=== PATIENT | female | born 1990 | race African-American/Black ===

== ENCOUNTER 2024-01-18 13:23 | Inpatient (IN) | payer OTHER, SELFPAY ==
--- NOTE | ~2024-01-18 | CT_ITS ---
EXAMINATION: CT abdomen pelvis w con DATE: 01/18/2024 16:56 INDICATION: Right buttock abscess. TECHNIQUE: Computed tomography (CT) of the abdomen and pelvis was performed with 100 mL Omnipaque 350 intravenous contrast. Automated exposure control and iterative reconstruction technique were employe d. The dose-length product was 489.70 mGy-cm. COMPARISON: None. FINDINGS: The visualized portions of the lung bases are clear without pneumonia or pleural effusion. The heart size is normal. No pericardial effusion. The liver, gallbladder, spleen, pancreas, adrenal glands, and kidneys are normal. There are no dilated loops of bowel. The appendix is normal. There is no free intraperitoneal fluid. There is a mildly enlarged right external iliac lymph node. There is fat stranding in the right perineum and right buttock. There is mild lumbar spondylosis. Severely dec reased disc height at T10-T11 may be an abnormality of segmentation. IMPRESSION: 1. Fat stranding in the right perineum and right buttock, consistent with inflammation. No well-defin ed drainable abscess. 2. Mildly enlarged right external iliac lymph node, likely reactive. Reviewed, dictated and finalized at location A. IMPRESSION: 1. Fat stranding in the right perineum and right buttock, consistent with infla mmation. No well-defined drainable abscess. 2. Mildly enlarged right external iliac lymph node, likely reactive.
[2024-01-18 14:10] VITALS: BP 143/88; PULSE 110; RESP 18; TEMP 37.6; O2SAT 100
--- NOTE | 2024-01-18 14:22 | ED.RECABL ---
HPI - Recheck/Abnormal Lab/Rx General Chief Complaint: Recheck/Abnormal Lab/Rx <ALECIA Falk Last Filed: 01/18/24 14:31> Stated Complaint: high blood sugar <ALECIA Falk Last Filed: 01/18/24 14:31> Time Seen by Provider: 01/18/24 14:22 <ALECIA Falk Last Filed: 01/18/24 14:31> Focused HPI: Patient is a 33 y/o female who presents to the ED with c/o elevated BG. Patient reports she has been dealing with a persistent yeast infection/UTI sx's since July. Was seen at [facility] at that time and told her BG was elevated, but was not formally diagnosed with DM. Hx of gestational DM in 2019. Over the last few months, patient c/o polyuria, polydipsia, frothy urine, intermittent paraesthesias in her extremities. States she checked her BG at work last night and it was elevated in the 500s. Saw her PCP today, bedside BG was mid 500's. Sent here for further evaluation. Patient does also admit to approx 60 lb unintentional weight loss since July. She has FHx of DM. GENERAL: Well-appearing, well-nourished, and in no acute distress. HEAD: Normocephalic, atraumatic. ENT: MMs dry. CHEST: Clear to auscultation. ?No respiratory distress. HEART: Regular rate and rhythm.? NEURO: ?Alert and oriented x3. Patient screened in triage and initial orders placed.? ?Additional care and disposition to be based upon?diagnostic testing and treatment. <ALECIA Falk Last Filed: 01/18/24 14:31> Source: patient <ALECIA Falk Last Filed: 01/18/24 14:31> Mode of arrival: ambulatory <ALECIA Falk Last Filed: 01/18/24 14:31> Limitations: no limitations <ALECIA Falk Last Filed: 01/18/24 14:31> History of Present Illness HPI narrative: 33-year-old female presented emergency department for evaluation of persistently elevated blood sugars. Patient states that she suspects she has had elevated blood sugar since July but has not had follow-up with her primary care physician today patient states she has had longstanding issues with polyuria but did see a and has had a persistent yeast infection. Patient also reports over the course of the last week she has had a draining abscess on her right buttock. Patient attempted to have follow-up with her primary care physician today but due to her blood sugars being so elevated she was referred to the emergency department. Patient does have a prior history of gestational diabetes in 2019 <Jason Mckeon MD - Last Filed: 01/18/24 22:24> Related Data Allergies/Adverse Reactions: Allergies Allergy/AdvReac Type Severity Reaction Status Date / Time No Known Allergies Allergy Verified 01/18/24 15:14 <Ashlie Woodruff PA-C - Last Filed: 01/18/24 14:31> Review of Systems Review of Systems: All systems reviewed & are unremarkable except as noted in HPI and below <Jason Mckeon MD - Last Filed: 01/18/24 22:24> [facility] Past Medical History Medical History: Medical History (Updated 01/18/24 @ 22:11 by Connie Andino PA-C) Gestational diabetes <Ashlie Woodruff PA-C - Last Filed: 01/18/24 14:31> Surgical History Surgical History: Surgical History (Updated 01/18/24 @ 22:11 by Connie Andino PA-C) No history of previous surgery <Ashlie Woodruff PA-C - Last Filed: 01/18/24 14:31> Family History Family History: Family History Father Hypertension Grandparent Diabetes mellitus <Ashlie Woodruff PA-C - Last Filed: 01/18/24 14:31> Social History Social History: Social History (Updated 01/18/24 @ 22:12 by Connie Andino PA-C) Social History: Surrogate medical decision maker: Dorys Ibarra, mother. Code status: Full code. Smoking packs per day: 0.25 Smoking cigarettes per day: 5.0 Years smoked: 14 Smoking pack-years:
[2024-01-18 14:27] LABS: Glucose Point of Care 329 mg/dl (65-105)
[2024-01-18 14:44] LABS: Basophils Absolute Auto 0.1 K/mm3 (0.0-0.1); Basophils Percent Auto 0.4 % (0.2-1.2); Eosinophils Absolute Auto 0.1 K/mm3 (0-0.3); Eosinophils Percent Auto 0.4 % (0-4.4); Hematocrit 41.1 % (37.0-47.0); Immature Granulocyte Absolute 0.07 K/mm3 (0.00-0.031); Immature Granulocyte Percent A 0.5 % (0-0.5); Lymphocytes Absolute Auto 1.17 K/mm3 (0.9-3.2); Lymphocytes Percent Auto 8.4 % (18.3-44.2); Mean Corpuscular HGB Conc 34.1 g/dl (32-36); Mean Corpuscular Hemoglobin 29.9 pg (26-34); Mean Corpuscular Volume 87.8 fl (80-100); Mean Platelet Volume 11.5 fl (7.4-10.4); Monocytes Absolute Auto 0.9 K/mm3 (0.1-0.6); Monocytes Percent Auto 6.4 % (2.6-8.5); Neutrophils Absolute Auto 11.6 K/mm3 (1.3-6.7); Neutrophils Percent Auto 83.9 % (45.5-73.1); Platelet Count Result 262 k/mm3 (150-375); Red Blood Count 4.68 M/mm3 (4.2-5.4); Red Cell Distribution Width 13.6 % (11.5-14.5); White Blood Count 13.9 K/mm3 (4.5-10.0)
[2024-01-18 14:55] LABS: Alanine Aminotransferase 14 U/L (6-35); Albumin Level 4.2 g/dL (3.5-5.1); Alkaline Phosphatase 91 U/L (38-126); Anion Gap 9 mmol/L (4-12); Aspartate Amino Transferase 17 U/L (14-36); Bilirubin,Total 0.6 mg/dL (0.2-1.3); Blood Urea Nitrogen 7 mg/dL (7-17); Calcium 10.3 mg/dL (8.4-10.2); Carbon Dioxide 23 mmol/L (22-30); Chloride 102 mmol/L (98-107); Estimated CRCL calculation 134 ml/min; Estimated Glomerular Filt Rate > 60; Glucose 338 mg/dL (65-110); Magnesium 1.9 mg/dL (1.6-2.3); Phosphorus 3.1 mg/dL (2.5-4.5); Sodium 134 mmol/L (137-145)
[2024-01-18 14:56] LABS: Lactic Acid Reflex 1.6 mmol/L (0.7-2.0)
[2024-01-18 14:59] LABS: Beta-Hydroxybutyrate/Acetoacetate 1.32 mmol/L (0.02-0.27)
[2024-01-18 15:06] LABS: Hemoglobin A1C 13.6 % (<5.7)
[2024-01-18 15:12] LABS: Alveolar/Arterial O2 Gradient 40.1 mmHg; Base Excess ABG -1.5 mEq/l (+/-2.0); Carboxyhemoglobin 1.7 % THb (0-2.0); Fractional Inspired Oxygen 21 %; HCO3 ABG 20.7 mEq/l (22.0-26.0); Methemoglobin ABG 0.1 %THb (0-1.5); Oxygen Content ABG 18.3 %vol (16.0-22.0); Oxygen Saturation ABG 96.2 % (95.0-100.0); Oxyhemoglobin 93.3 % THb (90.0-100.0); PCO2 ABG 28.6 mmHg (35.0-45.0); PO2 ABG 75.4 mmHg (80.0-100.0); PO2 FiO2 Ratio Arterial Blood 3.59 %; Reduced Hemoglobin 4.9 %THb (0-5.0); Total Hemoglobin 13.9 g/dL (12.0-18.0); pH ABG 7.478 (7.350-7.450)
[2024-01-18 15:14] VITALS: BP 115/82; PULSE 95; RESP 17; TEMP 38.4; O2SAT 100
[2024-01-18 15:15] LABS: Device ROOM AIR; Site Drawn LEFT RADIAL
[2024-01-18] MEDS: SODIUM CHLORIDE 0.9% IV 1,000 ML 999 ML IV CONT ×2 (15:21→15:58)
[2024-01-18 15:55] VITALS: BMI 30.4
[2024-01-18] MEDS: ACETAMINOPHEN 500 MG TABLET 1000 MG PO ×2 (15:57→23:11)
--- NOTE | 2024-01-18 16:00 | PM.IMHP ---
H&P: HPI History of Present Illness Date/Time: 01/18/24 16:45 Chief Complaint: High blood sugar. Narrative: This is a pleasant 33-year-old female with history of gestational diabetes in 2019 who presented to the emergency department the direction of her primary care provider for evaluation after she was found to have a blood sugar over 500. The patient provides the following history. She has been dealing with recurrent yeast in urinary tract infections since last July. She was seen at [facility] for her symptoms and was told that her glucose was elevated however she was never formally diagnosed with diabetes. Since that time she has lost 60 lb unintentionally and endorses polyuria, polydipsia, frothy urine, intermittent paresthesias in her fingers and feet, and a 60 lb weight loss. Last night work she decided to check her blood glucose and noted that it was greater than 500. She also reports ongoing an intermittent issues with boils on the perineum and buttock and over the last several days she has developed a painful boil on the right buttock which has been draining serosanguineous fluid. Last couple of days she has been running fevers and reports generalized malaise. She denies sinus congestion, sore throat, cough, nausea, vomiting, and diarrhea. In the ED: Temperature was 101.1? and she was tachycardic in the low 100s. Labs were significant for a WBC count of 13.9, sodium 134, glucose 338, lactic acid 1.6, glucose 338, beta hydroxybutyrate 1.32. She was given 2 L normal saline bolus and a dose of Zosyn and she is being admitted in this setting for further treatment and evaluation. Review of Systems Review of Systems: 12 systems were reviewed and are negative except for as per HPI. [facility] Past Medical History Medical History (Updated 01/18/24 @ 22:11 by Connie Andino PA-C) Gestational diabetes Surgical History Surgical History (Updated 01/18/24 @ 22:11 by Connie Andino PA-C) No history of previous surgery Family History Family History Father Hypertension Grandparent Diabetes mellitus Social History Social History (Updated 01/18/24 @ 22:12 by Connie Andino PA-C) Social History: Surrogate medical decision maker: Dorys Ibarra, mother. Code status: Full code. Smoking packs per day: 0.25 Smoking cigarettes per day: 5.0 Years smoked: 14 Smoking pack-years: 3.50 Smoking status: Current every day smoker Tobacco type: cigarettes Second hand tobacco smoke exposure: Yes Alcohol intake: never Substance use: current Substance use type: marijuana Do You Feel Safe in your Home?: Yes Lack of Transportation: No Lack of Food: Never True Current Housing: I Have Housing Concerned About Future Housing: No Difficulty Paying Gas/Electric Bills: No Difficulty Paying for Meds: No Currently Unemployed: No Education: High School Diploma/GED Difficulty w/ Childcare or Family Care: No Additional living arrangements comments: Lives with mother in 5-year-old son. Additional occupation/education comments: [employer]. Spiritual care concerns: No Meds Home Medications and Allergies Allergies Allergy/AdvReac Type Severity Reaction Status Date / Time No Known Allergies Allergy Verified 01/18/24 15:14 Vital Signs Vital Signs - 24 hr 01/18/24 14:10 01/18/24 15:14 Temperature 99.6 F 101.1 F H Pulse Rate 110 H 95 Respiratory Rate 18 17 Blood Pressure 143/88 H 115/82 Pulse Oximetry 100 100 Oxygen Delivery Room Air Room Air Exam Narrative: General: Well-developed, nontoxic-appearing female in the semi-Rivera position in bed. Weight: 80.2 kg. BMI: 30.3. HEENT: PERRL, EOMI. Sclera anicteric. Oral mucosa moist. Neck: Supple. Respiratory: Lungs are clear to auscultation bilaterally. Cardiovascular: Regular rate and rhythm with S1-S2. Gastrointestinal: Abdomen is soft, nontender, an
[2024-01-18 16:27] VITALS: TEMP 37.5
[2024-01-18 16:38] VITALS: BP 122/85; PULSE 98; RESP 15; TEMP 37.5; O2SAT 100
[2024-01-18 16:46] LABS: Appearance Urine Clear (Clear); Bilirubin Urine Negative (Negative); Blood Urine Negative (Negative); Color Urine Yellow (Yellow); Glucose Urine UA 3+ mg/dL (Negative); Ketones Urine 4+ mg/dL (Negative); Leukocyte Esterase Ur Negative LEU/UL (Negative); Nitrate Urine Negative (Negative); Protein Urine Negative (Negative); pH Urine 5.5 (5.0-9.0)
[2024-01-18 16:55] LABS: Add Urine Microscopic? NO
[2024-01-18 17:54] VITALS: BP 123/82; PULSE 96; RESP 16; TEMP 36.8; O2SAT 100
--- NOTE | 2024-01-18 18:00 | ADMGEN ---
This patient, Micheal Ibarra, was admitted to 2 Medical Room 260-. Patient/family oriented to hospital policies and general routines including ID bracelet, bed and alarms, visiting hours, pain management, procedures, bathroom and other care routines, personal items, smoking policy, room service/diet, and visiting hours. Information on how to activate the Rapid Response Team has been discussed. Patient/Family are encouraged to report perceived risks to care and to ask questions if they do not understand what they are told or what they should do.
[2024-01-18] MEDS: PIPERACILLN/TAZ 3.375GM/NS50ML 3.375 GM/50 ML BAG IVPB ×2 (18:22→23:12)
[2024-01-18] MEDS: VANCOMYCIN 1,500 MG/NS 500 ML 1,500 MG/500 ML BAG 250 MG IVPB (21:15)
[2024-01-18] MEDS: FLUCONAZOLE 150 MG TABLET PO (21:16)
[2024-01-18 21:36] VITALS: BP 123/75; PULSE 79; RESP 20; TEMP 36.9; O2SAT 100
[2024-01-18] MEDS: INSULIN ASPART (*BKC) 100 UNITS/ML SUB-Q (21:36)
[2024-01-18 21:37] VITALS: BMI 30.3
[2024-01-18] MEDS: INSULIN GLARGINE (*BKC) 100 UNITS/ML 12 UNITS SUB-Q (21:37)
[2024-01-18 21:55] LABS: Glucose Point of Care 398 mg/dl (65-105)
[2024-01-19 05:04] LABS: Hematocrit 37.5 % (37.0-47.0); Hemoglobin 12.1 g/dL (12.0-15.0); Mean Corpuscular HGB Conc 32.3 g/dl (32-36); Mean Corpuscular Hemoglobin 29.9 pg (26-34); Mean Corpuscular Volume 92.6 fl (80-100); Mean Platelet Volume 11.5 fl (7.4-10.4); Platelet Count Result 243 k/mm3 (150-375); Red Blood Count 4.05 M/mm3 (4.2-5.4); Red Cell Distribution Width 13.6 % (11.5-14.5); White Blood Count 13.9 K/mm3 (4.5-10.0)
[2024-01-19 05:16] LABS: Anion Gap 5 mmol/L (4-12); Blood Urea Nitrogen 6 mg/dL (7-17); Calcium 8.7 mg/dL (8.4-10.2); Carbon Dioxide 21 mmol/L (22-30); Chloride 107 mmol/L (98-107); Estimated CRCL calculation 134 ml/min; Estimated Glomerular Filt Rate > 60; Glucose 246 mg/dL (65-110); Potassium 3.8 mmol/L (3.4-5.0); Sodium 133 mmol/L (137-145)
[2024-01-19] MEDS: PIPERACILLN/TAZ 3.375GM/NS50ML 3.375 GM/50 ML BAG IVPB ×4 (05:25→23:38)
[2024-01-19 05:38] VITALS: BP 106/67; PULSE 84; RESP 20; TEMP 36.6; O2SAT 99
[2024-01-19 07:34] LABS: Glucose Point of Care 255 mg/dl (65-105)
[2024-01-19] MEDS: NICOTINE (*PBKC) 14 MG PATCH 1 PATCH TRANSDERM (08:29)
[2024-01-19] MEDS: INSULIN ASPART (*BKC) 100 UNITS/ML SUB-Q ×3 (08:30→21:22)
[2024-01-19] MEDS: VANCOMYCIN 1,500 MG/NS 500 ML 1,500 MG/500 ML BAG 250 MG IVPB ×2 (08:30→21:07)
[2024-01-19] MEDS: ACETAMINOPHEN 500 MG TABLET 1000 MG PO (08:36)
--- NOTE | 2024-01-19 09:54 | PM.CNGS ---
Assessment and Plan Assessment and plan (1) Perirectal abscess: Code(s): K61.1 - Rectal abscess Status: Acute Assessment and Plan: CT scan of the abdomen and pelvis reviewed and showed inflammation in the right perineum and right buttock, but no well-defined drainable abscess. On exam, the patient appears to have a perirectal abscess with purulent drainage coming from an open wound on the right buttock. She is still extremely tender and this does not appear to be adequately drained. Would recommend incision and drainage of perirectal abscess in the OR. Description of the procedure, risks, benefits, alternative, and expected wound care following surgery were discussed with the patient in detail. She agrees to proceed. Will make her NPO after midnight and work on adding her onto the surgery schedule for tomorrow. Continue IV antibiotics. Wound culture pending. (2) New onset type 2 diabetes mellitus: Code(s): E11.9 - Type 2 diabetes mellitus without complications Status: Acute Assessment and Plan: Newly diagnosed type 2 diabetes mellitus. Hgb A1C 13.9 on admission. She is receiving Education from dietitian. We discussed the need for tight glycemic control to promote good healing and to prevent future issues. Plan I have discussed the patient's case and plan of care with Dr. Mai. Thank you for allowing us to see the patient in consultation and we will continue to follow along with you. History of Present Illness Consult details Consult date: 01/19/24 Reason for consult: other (Buttock abscess) Requesting physician: Connie Andino PA-C Narrative: This is a 33-year-old female with a history of gestational diabetes in 2019, who presented to the emergency department as directed by her primary care provider for evaluation of hyperglycemia. She reports recurrent urinary tract infections and yeast infections since last July. She has been seen at [facility] for her symptoms and was told her glucose was high at that time, however she has never been formally diagnosed with diabetes. She also reports about 60 lb of unintentional weight loss, polyuria, polydipsia, frothy urine, and intermittent paresthesias in her fingers and feet over the past few months. She checked her blood glucose at work 2 nights ago and saw that it was greater than 500. Her PCP then recommended she go to the ER for evaluation. She also reports ongoing intermittent issues with boils on the perineum and buttock over the last few weeks. She reports typically she notices a small bump that eventually drains and gets better. Over the past week, she noticed a bump and that became larger and more painful than previous episodes. This began draining about 4 days ago. She also reports subjective fevers, but did not take her temperature. This has become more painful and it is even difficult for her to lay on her right side due to the discomfort. In the ED, she was febrile with a temperature of a 101? F and tachycardic in the low 100s. [place] [address], glucose 338, lactic acid 1.6, beta hydroxybutyrate 1.32. She was admitted to the hospitalist service. She has been started on IV Zosyn and vancomycin. Wound culture obtained from the abscess. Blood cultures also ordered and pending. She had a CT scan of the abdomen and pelvis that showed fat stranding in the right perineum and right buttock, consistent with inflammation. No well-defined drainable abscess. Mildly enlarged right external iliac lymph node, likely reactive. Our service was consulted for possible buttock abscess. She is now seen on the medical floor. No previous surgical history. Review of Systems Review of Systems: All systems reviewed & are unremarkable except as noted in HPI and below Constitutional: Constitutional: Reports as per HPI and Reports no additional constitutional complaints Gastrointestinal: Gastrointestinal: Reports as per
[2024-01-19 11:45] LABS: Glucose Point of Care 211 mg/dl (65-105)
[2024-01-19 12:14] VITALS: BMI 28.3
[2024-01-19 14:00] VITALS: BP 105/58; PULSE 87; RESP 14; TEMP 37.3; O2SAT 100
[2024-01-19] MEDS: HYDROcodone/acetaminophen (*CRX) 5-325 MG TABLET 1 TAB PO ×2 (14:08→21:13)
--- NOTE | 2024-01-19 14:27 | PM.IMPN ---
Progress Note: A&P Assessment and Plan (1) New onset type 2 diabetes mellitus: Code(s): E11.9 - Type 2 diabetes mellitus without complications Status: Acute Assessment and Plan: Random glucose was 338 hemoglobin A1C 13.6%. She will be started on long-acting insulin today and metformin on discharge. hypoglycemia protocol. certified lactation educator consulted (2) Abscess of right buttock: Code(s): L02.31 - Cutaneous abscess of buttock Status: Acute Assessment and Plan: CT abdomen and pelvis fat stranding in the right perineum and right buttock, consistent with inflammation. No well-defined drainable abscess. Continue empiric broad-spectrum antibiotics including vancomycin and Zosyn Consult general surgery General surgery recommending I and D in the OR tomorrow Wound care consulted. Wound culture pending Blood culture pending. We discussed the importance of keeping her glucose under tight control for good wound healing and to prevent further issues. (3) Cellulitis of right buttock: Code(s): L03.317 - Cellulitis of buttock Status: Acute Assessment and Plan: See problem #2 (4) Cellulitis of perineum: Code(s): L03.315 - Cellulitis of perineum Status: Acute Assessment and Plan: See problem #2 Subjective Date/time seen: 01/19/24 14:27 Interval history: Patient is emotional room when discussing her diabetes. She has a long family history diabetes. certified lactation educator has been her and discuss treatment plan with her. general surgery has seen the patient and discussed treatment plan with her as well. Plan for I and D in OR tomorrow. She is still having quite a bit of pain near the abscess. Her buttock is still pretty indurated. She has remained afebrile since presentation to the ED. white count remains unchanged Exam Narrative: GENERAL: Comfortable, no acute distress HENMT: moist mucous membranes EYES: EOM intact b/l NECK: no lymphadenopathy RESPIRATORY: clear to auscultation, no increased respiratory effort CARDIO: Regular rate and rhythm GI: soft, nontender, bowel sounds present SKIN/EXTREMITIES: left-sided buttock induration and open wound, gauze in place NEURO: PROM intact, answers questions appropriately, A&O x4 Objective Data Vital Signs Vital Signs: Vital Signs - 24 hr 01/18/24 15:14 01/18/24 16:27 01/18/24 16:38 Temperature 101.1 F H 99.5 F 99.5 F Pulse Rate 95 98 Respiratory Rate 17 15 Blood Pressure 115/82 122/85 Pulse Oximetry 100 100 Oxygen Delivery Room Air 01/18/24 17:54 01/18/24 21:36 01/18/24 21:15 Temperature 98.2 F 98.4 F Pulse Rate 96 79 Respiratory Rate 16 20 Blood Pressure 123/82 123/75 Pulse Oximetry 100 100 Oxygen Delivery Room Air 01/19/24 05:38 01/19/24 08:30 Temperature 97.9 F Pulse Rate 84 Respiratory Rate 20 Blood Pressure 106/67 Pulse Oximetry 99 Oxygen Delivery Room Air Intake/Output Intake/Output: Intake & Output 01/16/24 01/17/24 01/18/24 01/19/24 23:59 23:59 23:59 23:59 Intake Total 2600 1710 Balance 2600 1710 Meds/Results Medications: Active Medications Generic Name Dose Route Start Last Admin Trade Name Freq PRN Reason Stop Dose Admin Acetaminophen 650 mg 01/18/24 22:14 Acetaminophen 325 Mg Tablet PO Q6H PRN Mild Pain (1-3) or Fever Hydrocodone Bitart/Acetaminophen 1 tab 01/19/24 13:57 01/19/24 14:08 Hydrocodone/Acetaminophen (*Crx) 5-325 Mg Tablet PO 1 tab Q6H PRN Administration Pain Rated 4-6 Dextrose 12.5 gm 01/18/24 18:39 Dextrose 50% 25 Gm/50 Ml Syringe IV PUSH PRN PRN Hypoglycemia Protocol Enoxaparin Sodium 40 mg 01/19/24 09:00 01/19/24 08:35 Enoxaparin 40 Mg/0.4 Ml Syringe SUB-Q Not Given DAILY EZRA Glucagon 1 mg 01/18/24 18:39 Glucagon For Inj 1 Mg Vial IM PRN PRN Hypoglycemia Protocol Glucose 15 gm 01/18/24 18:39 Gluc
[2024-01-19 16:52] LABS: Glucose Point of Care 413 mg/dl (65-105)
[2024-01-19] MEDS: INSULIN ASPART (*BKC) 100 UNITS/ML 10 UNITS SUB-Q (17:21)
[2024-01-19 17:32] VITALS: TEMP 37.2
[2024-01-19] MEDS: ACETAMINOPHEN 325 MG TABLET 650 MG PO ×2 (17:32→23:48)
[2024-01-19] MEDS: INSULIN GLARGINE (*BKC) 100 UNITS/ML 12 UNITS SUB-Q (21:15)
[2024-01-19 21:21] VITALS: BP 117/72; PULSE 89; RESP 18; TEMP 37.2; O2SAT 100
[2024-01-19 21:36] LABS: Glucose Point of Care 361 mg/dl (65-105)
[2024-01-20] VITALS (15 sets, daily range): BP systolic 101–140; BP diastolic 57–95; PULSE 61–103; RESP 15–25; TEMP 36.1–37.1; O2SAT 97–100
[2024-01-20] MEDS: PIPERACILLN/TAZ 3.375GM/NS50ML 3.375 GM/50 ML BAG IVPB ×3 (05:24→19:33)
[2024-01-20 07:24] LABS: Hematocrit 36.4 % (37.0-47.0); Hemoglobin 12.3 g/dL (12.0-15.0); Mean Corpuscular HGB Conc 33.8 g/dl (32-36); Mean Corpuscular Hemoglobin 30.1 pg (26-34); Mean Corpuscular Volume 89.2 fl (80-100); Mean Platelet Volume 11.3 fl (7.4-10.4); Platelet Count Result 282 k/mm3 (150-375); Red Blood Count 4.08 M/mm3 (4.2-5.4); Red Cell Distribution Width 13.5 % (11.5-14.5); White Blood Count 12.5 K/mm3 (4.5-10.0)
[2024-01-20 07:34] LABS: Anion Gap 8 mmol/L (4-12); Blood Urea Nitrogen 5 mg/dL (7-17); Calcium 9.2 mg/dL (8.4-10.2); Carbon Dioxide 21 mmol/L (22-30); Chloride 108 mmol/L (98-107); Estimated CRCL calculation 160 ml/min; Estimated Glomerular Filt Rate > 60; Glucose 250 mg/dL (65-110); Potassium 3.8 mmol/L (3.4-5.0); Sodium 137 mmol/L (137-145)
[2024-01-20 07:55] LABS: Glucose Point of Care 232 mg/dl (65-105)
--- NOTE | 2024-01-20 07:55 | PM.IMPN ---
Progress Note: A&P Assessment and Plan (1) New onset type 2 diabetes mellitus: Code(s): E11.9 - Type 2 diabetes mellitus without complications Status: Inactive Assessment and Plan: Random glucose was 338 on arrival - hemoglobin A1C 13.6%. - Plan to start long-acting insulin while inpatient and metformin on discharge. - hypoglycemia protocol. - nurses educator recommending low dose correction insulin order set including HS, monitor glucose for potential basal adjustments and possible mealtime dosing requirements. Wt based dosin units basal (lantus) and 5 units novolog TIDwm if required. (2) Abscess of right buttock: Code(s): L02.31 - Cutaneous abscess of buttock Status: Acute Assessment and Plan: CT abdomen and pelvis fat stranding in the right perineum and right buttock, consistent with inflammation. No well-defined drainable abscess. - Continue empiric broad-spectrum antibiotics including vancomycin and Zosyn - S/p incision and drainage of complexx right perirectal abscess. Wound packed with 1 in iodoform gauze.? Fluff gauze, ABD pad, and mesh underwear was then applied.? - Wound care consulted. - Wound culture 01/18/24: Staph aureus - Blood culture NGTD - We discussed the importance of keeping her glucose under tight control for good wound healing and to prevent further issues. (3) Cellulitis of right buttock: Code(s): L03.317 - Cellulitis of buttock Status: Acute Assessment and Plan: See problem #2 (4) Cellulitis of perineum: Code(s): L03.315 - Cellulitis of perineum Status: Acute Assessment and Plan: See problem #2 Time Spent With Patient Time with patient: 25 - 35 minutes Subjective Date/time seen: 01/20/24 07:55 Interval history: 33-year-old female with history of gestational diabetes in 2019 who presented to the emergency department the direction of her primary care provider for evaluation after she was found to have a blood sugar over 500.? Patient is lying comfortably in bed with family at bedside. She underwent an incision and drainage of her perirectal abscess this morning with Dr. Mai. She states that since the I&D her pain has improved and remains manageable on current pain regimen. Discussed the increase of her insulin per inclusion special educator recommendations and she states understanding. She continues to have yeast and redness below her pannus and into her thighs. She has received her one time dose of fluconazole on arrival. She denies chest pain, shortness of breath, nausea/vomiting, and changes in bowel/bladder. Review of Systems Review of Systems: All systems reviewed & are unremarkable except as noted in HPI and below Exam Narrative: AF HR 75 RR 18 SpO2 98 BP 102/69 General: female in no acute respiratory distress who is nontoxic appearing, lying on her left lateral in bed. HEENT: Normocephalic. Atraumatic. No facial asymmetry. Chest: Lungs are clear to auscultation bilaterally. No wheezes or crackles. CV: Heart was regular rate and rhythm. S1-S2. No murmurs, gallops, or rubs. Abd: Abdomen was soft. Nontender. Nondistended. Positive bowel sounds. No organomegaly or masses. Ext: No clubbing, cyanosis, or edema. 2+ DP pulses bilaterally. Neuro: Patient is alert and oriented x4. Speech is clear. Psych: Normal mood and affect. Patient is pleasant and cooperative. Skin: Warm and dry. Mild tenderness to her right buttock with packing and gauze in place. Minimal bloody discharge. Objective Data Vital Signs Vital Signs: Vital Signs - 24 hr 01/19/24 08:30 01/19/24 14:00 01/19/24 17:32 Temperature 99.2 F 98.9 F Pulse Rate 87 Respiratory Rate 14 Blood Pressure 105/58 L Pulse Oximetry 100 Oxygen Delivery Room Air 01/19/24 21:21 01/19/24 20:00 01/20/24 05:28 Temperature 99.0 F 97.8 F Pulse Rate 89 70 Respiratory Rate 18 18 Blood Pressure 117/72 101/63 Pulse Oximetry 100 100 O
[2024-01-20 08:00] LABS: Vancomycin Trough 6.7 ug/mL (10.0-20.0)
--- NOTE | 2024-01-20 08:20 | PC.NURSE ---
To OR via bed, IV saline locked in R AC. Report given to Bree LADD.
--- NOTE | 2024-01-20 08:25 | WPDANESEPPF ---
Anes - Initial Pre Proc Eval Procedure: Operation Date: 01/20/24 08:30 Proposed Procedures p Incision and Drainage Arlene-Rectal Abscess - Zackary Mai DO Date/Time: 01/20/24 08:25 Surgeon: Kirill Chawla MD Pre Op Diagnosis: New Onset Diabetes/Abscess Patient Data Age: 33 Gender: F Height: 1.63 m Weight: 77 kg Last Vital Signs Temp 36.6 C 01/20/24 05:28 Pulse 70 01/20/24 05:28 Resp 18 01/20/24 05:28 BP 101/63 01/20/24 05:28 Pulse Ox 100 01/20/24 05:28 O2 Del Method Room Air 01/19/24 20:00 Allergies Allergy/AdvReac Type Severity Reaction Status Date / Time No Known Allergies Allergy Verified 01/18/24 15:14 Home Medications Medication Instructions Recorded Confirmed Type No Home Medications 01/18/24 01/18/24 History Laboratory Tests 01/19/24 01/19/24 01/19/24 11:38 16:49 21:21 WBC RBC Hgb Hct MCV MCH MCHC RDW Plt Count MPV Sodium Potassium Chloride Carbon Dioxide Anion Gap BUN Creatinine Estim Creat Clear Calc Estimated GFR Glucose POC Capillary Glucose 211 H mg/dl 413 H mg/dl 361 H mg/dl (65-105) (65-105) (65-105) Calcium Vancomycin Trough 01/20/24 01/20/24 07:04 07:51 WBC 12.5 H K/mm3 (4.5-10.0) RBC 4.08 L M/mm3 (4.2-5.4) Hgb 12.3 g/dL (12.0-15.0) Hct 36.4 L % (37.0-47.0) MCV 89.2 fl (80-100) MCH 30.1 pg (26-34) MCHC 33.8 g/dl (32-36) RDW 13.5 % (11.5-14.5) Plt Count 282 k/mm3 (150-375) MPV 11.3 H fl (7.4-10.4) Sodium 137 mmol/L (137-145) Potassium 3.8 mmol/L (3.4-5.0) Chloride 108 H mmol/L (98-107) Carbon Dioxide 21 L mmol/L (22-30) Anion Gap 8 mmol/L (4-12) BUN 5 L mg/dL (7-17) Creatinine 0.40 L mg/dL (0.7-1.0) Estim Creat Clear Calc 160 ml/min Estimated GFR > 60 (59 - ) Glucose 250 H mg/dL (65-110) POC Capillary Glucose 232 H mg/dl (65-105) Calcium 9.2 mg/dL (8.4-10.2) Vancomycin Trough 6.7 L ug/mL (10.0-20.0) Patient hx anesthesia problems: none Family hx anesthesia problems: none Results Review: All pre-operative results and documents have been reviewed as part of the pre-operative evaluation. [facility] Past Medical History Medical History (Updated 01/20/24 @ 08:25 by Joesph Ovalle MD) Gestational diabetes New onset type 2 diabetes mellitus Overweight Surgical History Surgical History No history of previous surgery Family History Family History Father Hypertension Grandparent Diabetes mellitus Social History Social History Social History: Surrogate medical decision maker: Dorys Ibarra, mother. Code status: Full code. Smoking packs per day: 0.25 Smoking cigarettes per day: 5.0 Years smoked: 14 Smoking pack-years: 3.50 Smoking status: Current every day smoker Tobacco type: cigarettes Second hand tobacco smoke exposure: Yes Alcohol intake: never Substance use: current Substance use type: marijuana Do You Feel Safe in your Home?: Yes Lack of Transportation: No Lack of Food: Never True Current Housing: I Have Housing Concerned About Future Housing: No Difficulty Paying Gas/Electric Bills: No Difficulty Paying for Meds: No Currently Unemployed: No Education: High School Diploma/GED Difficulty w/ Childcare or Family Care: No Additional living arrangements comments: Lives with mother in 5-year-old son. Additional occupation/educ
--- NOTE | 2024-01-20 08:36 | WPDHPUPDATE1 ---
History and Physical Update Update Date/Time: 01/20/24 08:36 History and Physical has been reviewed, including an updated exam of the patient. There are NO changes in the patient's condition. Risks, benefits, and alternatives have been discussed and questions answered. Patient agrees to proceed with procedure.
[2024-01-20] MEDS: LACTATED RINGERS 1,000 ML 30 ML IV CONT (08:40)
[2024-01-20] MEDS: VANCOMYCIN 1,500 MG/NS 500 ML 1,500 MG/500 ML BAG 250 MG IVPB (08:40)
[2024-01-20] MEDS: BUPIVACAINE/EPINEPHRINE 0.5% 50 ML VIAL 20 ML INFILTRATE (09:09)
--- NOTE | 2024-01-20 09:29 | W.PM.PROC2 ---
Procedure Note - Detailed Date of Procedure 01/20/24 Pre-op Diagnosis Right perirectal abscess Post-op Diagnosis Same Procedure Performed incision and drainage of complex right perirectal abscess Surgeon Zackary Mai, DO Anesthesia General and Local ( 0.5% bupivacaine with epinephrine) Indications this is a 33-year-old woman who presented to the emergency department with right kizzy rectal swelling and pain. She was also found to be new onset diabetic with a hemoglobin A1c of 13.9. The patient was found to have a large perirectal abscess on exam. Discussions were made with the patient about treatment options and decision was made to proceed with incision and drainage perirectal abscess Findings incision and drainage of complex perirectal abscess was performed. The patient was found to have a large right perirectal abscess. This was also fairly deep dissecting about 8 cm into the perirectal tissue. There were multiple loculations that were broken up to adequately drain the abscess. There was about 2 oz of purulence fluid. There was also firm amount of induration around the tissue. After adequately draining the abscess, it was then irrigated with sterile saline and packed with 1 in iodoform gauze. Description of Procedure Procedure as well as risks, benefits, and alternatives were discussed with the patient. Written consent was obtained and placed in chart prior to procedure. Patient was brought back to surgical suite. She was placed supine on operating table. Time-out was done to confirm patient and procedure. She was then intubated by the anesthesia department. She was repositioned into the lithotomy position in stirrups and her perirectal area was prepped and draped in sterile fashion using Betadine prep. 0.5% bupivacaine with epinephrine was infiltrated locally around the right perirectal swelling. A 4 cm incision was then made over the area of induration and swelling. Blunt dissection was then carried out down to the abscess cavity. There were multiple loculations that were broken up and the purulence fluid was drained. The wound was then irrigated with sterile saline. No further loculations were identified. The wound was then packed with 1 in iodoform gauze. Fluff gauze, ABD pad, and mesh underwear was then applied. The patient was then awakened from anesthesia, extubated, and transferred to recovery. Estimated Blood Loss 10 Packing Yes ( 1 in iodoform gauze) Complications No immediate complications Condition Stable Disposition Floor [facility] Billing Surgery - Charge Forward: Surgery Billing
[2024-01-20 09:36] LABS: Glucose Point of Care 220 mg/dl (65-105)
[2024-01-20] MEDS: fentaNYL CITRATE INJ (*CRX) 100 MCG/2 ML VIAL 25 MCG IV PUSH ×2 (09:45→09:56)
--- NOTE | 2024-01-20 10:50 | PC.NURSE ---
Returned from OR via bed. Report received from Jolly LADD.
[2024-01-20] MEDS: HYDROcodone/acetaminophen (*CRX) 5-325 MG TABLET 1 TAB PO ×2 (11:13→19:53)
[2024-01-20 11:46] LABS: Glucose Point of Care 312 mg/dl (65-105)
[2024-01-20] MEDS: INSULIN ASPART (*BKC) 100 UNITS/ML SUB-Q ×2 (12:18→17:20)
[2024-01-20 16:54] LABS: Glucose Point of Care 388 mg/dl (65-105)
[2024-01-20] MEDS: VANCOMYCIN 1,750 MG/NS 500 ML 1,750 MG/500 ML BAG 250 MG IVPB (17:19)
[2024-01-20] MEDS: ACETAMINOPHEN 325 MG TABLET 650 MG PO (17:31)
[2024-01-20 20:10] LABS: Glucose Point of Care 448 mg/dl (65-105)
[2024-01-20] MEDS: INSULIN HUMAN REGULAR (*BKC) 100 UNITS/ML 10 UNITS SUB-Q (20:30)
[2024-01-20] MEDS: INSULIN GLARGINE (*BKC) 100 UNITS/ML 16 UNITS SUB-Q (20:30)
[2024-01-20 20:59] LABS: Glucose Point of Care 436 mg/dl (65-105)
[2024-01-20] MEDS: HYDROmorphone HCL INJ (*CRX) 1 MG/ML SYR IV PUSH (22:42)
[2024-01-21] VITALS (7 sets, daily range): BP systolic 93–122; BP diastolic 54–74; PULSE 57–93; RESP 16–18; TEMP 36.2–36.8; O2SAT 99–100; BMI 29.1
[2024-01-21 00:13] LABS: Glucose Point of Care 292 mg/dl (65-105)
[2024-01-21] MEDS: PIPERACILLN/TAZ 3.375GM/NS50ML 3.375 GM/50 ML BAG IVPB ×5 (01:34→23:00)
[2024-01-21] MEDS: VANCOMYCIN 1,750 MG/NS 500 ML 1,750 MG/500 ML BAG 250 MG IVPB (01:35)
[2024-01-21] MEDS: HYDROcodone/acetaminophen (*CRX) 5-325 MG TABLET 1 TAB PO ×4 (06:40→23:30)
[2024-01-21 08:19] LABS: Glucose Point of Care 264 mg/dl (65-105)
[2024-01-21 08:20] LABS: Basophils Percent Auto 0.3 % (0.2-1.2); Eosinophils Absolute Auto 0.1 K/mm3 (0-0.3); Eosinophils Percent Auto 0.5 % (0-4.4); Hematocrit 36.3 % (37.0-47.0); Hemoglobin 12.4 g/dL (12.0-15.0); Immature Granulocyte Absolute 0.08 K/mm3 (0.00-0.031); Immature Granulocyte Percent A 0.7 % (0-0.5); Lymphocytes Absolute Auto 1.97 K/mm3 (0.9-3.2); Lymphocytes Percent Auto 16.1 % (18.3-44.2); Mean Corpuscular HGB Conc 34.2 g/dl (32-36); Mean Corpuscular Hemoglobin 30.2 pg (26-34); Mean Corpuscular Volume 88.3 fl (80-100); Monocytes Percent Auto 8.5 % (2.6-8.5); Neutrophils Absolute Auto 9.1 K/mm3 (1.3-6.7); Neutrophils Percent Auto 73.9 % (45.5-73.1); Platelet Count Result 327 k/mm3 (150-375); Red Blood Count 4.11 M/mm3 (4.2-5.4); Red Cell Distribution Width 13.9 % (11.5-14.5); White Blood Count 12.3 K/mm3 (4.5-10.0)
[2024-01-21] MEDS: NICOTINE (*PBKC) 14 MG PATCH 1 PATCH TRANSDERM (08:22)
[2024-01-21] MEDS: INSULIN ASPART (*BKC) 100 UNITS/ML SUB-Q ×5 (08:23→20:47)
[2024-01-21 08:31] LABS: Alanine Aminotransferase 20 U/L (6-35); Albumin Level 3.7 g/dL (3.5-5.1); Alkaline Phosphatase 80 U/L (38-126); Anion Gap 10 mmol/L (4-12); Aspartate Amino Transferase 25 U/L (14-36); Bilirubin,Total 0.5 mg/dL (0.2-1.3); Blood Urea Nitrogen 9 mg/dL (7-17); Calcium 9.9 mg/dL (8.4-10.2); Carbon Dioxide 21 mmol/L (22-30); Chloride 106 mmol/L (98-107); Estimated CRCL calculation 97 ml/min; Estimated Glomerular Filt Rate > 60; Glucose 256 mg/dL (65-110); Potassium 3.6 mmol/L (3.4-5.0); Sodium 137 mmol/L (137-145)
--- NOTE | 2024-01-21 08:51 | PM.IMPN ---
Progress Note: A&P Assessment and Plan (1) New onset type 2 diabetes mellitus: Code(s): E11.9 - Type 2 diabetes mellitus without complications Status: Inactive Assessment and Plan: Random glucose was 338 on arrival - hemoglobin A1C 13.6%. - Plan to start long-acting insulin while inpatient and metformin on discharge. - hypoglycemia protocol. - extension educator recommending low dose correction insulin order set including HS, monitor glucose for potential basal adjustments and possible mealtime dosing requirements. Wt based dosin units basal (lantus) and 5 units novolog TIDwm if required. - Spoke with certified diabetes educator again today. She plans on evaluating patient later today. Due to patients continued glucose elevation the basal dosing was increased to 19 units basal (lantus). She remains on the corrective dosing at mealtime, however may switch to meal time dosing if glucose levels remain elevated. (2) Abscess of right buttock: Code(s): L02.31 - Cutaneous abscess of buttock Status: Acute Assessment and Plan: CT abdomen and pelvis fat stranding in the right perineum and right buttock, consistent with inflammation. No well-defined drainable abscess. - Continue empiric broad-spectrum antibiotics including vancomycin and Zosyn - S/p incision and drainage of complexx right perirectal abscess. Wound packed with 1 in iodoform gauze.? Fluff gauze, ABD pad, and mesh underwear was then applied.? - Wound care consulted. - Wound culture 01/18/24: Staph aureus and Prevotella brevia - Blood culture NGTD - Surgery evaluated patient today and packing was removed. - We discussed the importance of keeping her glucose under tight control for good wound healing and to prevent further issues. (3) Cellulitis of right buttock: Code(s): L03.317 - Cellulitis of buttock Status: Acute Assessment and Plan: See problem #2 (4) Cellulitis of perineum: Code(s): L03.315 - Cellulitis of perineum Status: Acute Assessment and Plan: See problem #2 Time Spent With Patient Time with patient: 25 - 35 minutes Subjective Date/time seen: 01/21/24 08:51 Interval history: 33-year-old female with history of gestational diabetes in 2019 who presented to the emergency department the direction of her primary care provider for evaluation after she was found to have a blood sugar over 500.? Patient is pleasant lying comfortably in bed with family at bedside. She states that Spoke with certified diabetes educator today in regards to patients elevated glucose levels. Patients lantus increased from 16 to 19 units at that time. Discussed the possibility of needing meal time dosed insulin rather than the corrective doses. extension educator plans on seeing patient today to reassess this need. I discussed with the patient that when she is discharged home she will remain on insulin at that time. She states understanding. Review of Systems Review of Systems: All systems reviewed & are unremarkable except as noted in HPI and below Exam Narrative: AF HR 93 RR 16 SpO2 99 BP 122/60 General: female in no acute respiratory distress who is nontoxic appearing, lying on her left lateral in bed. HEENT: Normocephalic. Atraumatic. No facial asymmetry. Chest: Lungs are clear to auscultation bilaterally. No wheezes or crackles. CV: Heart was regular rate and rhythm. S1-S2. No murmurs, gallops, or rubs. Abd: Abdomen was soft. Nontender. Nondistended. Positive bowel sounds. No organomegaly or masses. Ext: No clubbing, cyanosis, or edema. 2+ DP pulses bilaterally. Neuro: Patient is alert and oriented x4. Speech is clear. Psych: Normal mood and affect. Patient is pleasant and cooperative. Skin: Warm and dry. Mild tenderness to her right buttock with gauze in place. Objective Data Vital Signs Vital Signs: Vital Signs - 24 hr 01/20/24 09:25 01/20/24 09:50 01/20/24 09:30 Temperature 97.0 F L Pulse
[2024-01-21 08:54] LABS: Vancomycin Trough 23.9 ug/mL (10.0-20.0)
[2024-01-21] MEDS: HYDROmorphone HCL INJ (*CRX) 1 MG/ML SYR IV PUSH (09:11)
--- NOTE | 2024-01-21 09:45 | PM.PNGS ---
Progress Note: A&P Assessment and Plan (1) Perirectal abscess: Code(s): K61.1 - Rectal abscess Status: Acute Assessment and Plan: POD#1 following I&D complex right perirectal abscess Packing removed today. Continue gauze dressing changes. Continue IV antibiotics. (2) New onset type 2 diabetes mellitus: Code(s): E11.9 - Type 2 diabetes mellitus without complications Status: Inactive Assessment and Plan: Newly diagnosed. Glucose still in the 300-400's overnight. Management per primary service. Plan I have discussed the patient's case and plan of care with Dr. Mai. Subjective Subjective Date/Time Seen: 01/21/24 09:45 Post Op day: 1 (incision and drainage of complex right perirectal abscess) Patient reports: no new complaints and afebrile Interval history: Patient feeling better this morning. She reports improvement of perirectal pain and relief of pressure following surgery. No specific complaints at this time. No acute issues overnight. Exam Narrative: Right buttock dressing removed, perirectal abscess packing removed. Perirectal abscess appears adequately drained, no purulent drainage, induration slightly improved. Objective Data Vital Signs Vital Signs: Vital Signs - 24 hr 01/20/24 09:50 01/20/24 10:00 01/20/24 10:15 Temperature Pulse Rate 90 71 77 Respiratory Rate 18 15 17 Blood Pressure 140/95 H 128/90 119/81 Pulse Oximetry 98 98 97 Oxygen Delivery Room Air Room Air Room Air 01/20/24 10:30 01/20/24 10:50 01/20/24 11:05 Temperature 98.2 F 98.2 F Pulse Rate 78 67 66 Respiratory Rate 22 H 18 18 Blood Pressure 114/80 106/62 104/61 Pulse Oximetry 97 100 100 Oxygen Delivery Room Air 01/20/24 11:26 01/20/24 11:30 01/20/24 16:26 Temperature 98.6 F Pulse Rate 75 65 Respiratory Rate 18 18 Blood Pressure 102/69 103/68 Pulse Oximetry 98 98 100 Oxygen Delivery Room Air 01/20/24 20:26 01/20/24 20:00 01/21/24 00:12 Temperature 97.5 F L 97.1 F L Pulse Rate 61 61 57 L Respiratory Rate 18 18 18 Blood Pressure 109/57 L 117/74 Pulse Oximetry 100 100 100 Oxygen Delivery Room Air 01/21/24 04:26 Temperature 97.4 F L Pulse Rate 91 Respiratory Rate 18 Blood Pressure 97/72 L Pulse Oximetry 100 Oxygen Delivery Intake/Output Intake/Output: Intake & Output 01/18/24 01/19/24 01/20/24 01/21/24 23:59 23:59 23:59 23:59 Intake Total 2600 3150 3170 400 Balance 2600 3150 3170 400 Meds/Results Medications: Active Medications Generic Name Dose Route Start Last Admin Trade Name Freq PRN Reason Stop Dose Admin Acetaminophen 650 mg 01/18/24 22:14 01/20/24 17:31 Acetaminophen 325 Mg Tablet PO 650 mg Q6H PRN Administration Mild Pain (1-3) or Fever Hydrocodone Bitart/Acetaminophen 1 tab 01/19/24 13:57 01/21/24 06:40 Hydrocodone/Acetaminophen (*Crx) 5-325 Mg Tablet PO 1 tab Q6H PRN Administration Pain Rated 4-6 Dextrose 12.5 gm 01/18/24 18:39 Dextrose 50% 25 Gm/50 Ml Syringe IV PUSH PRN PRN Hypoglycemia Protocol Diphenhydramine HCl 25 mg 01/20/24 10:41 Diphenhydramine Hcl Inj 50 Mg/Ml Vial IV PUSH Q6H PRN Itching Enoxaparin Sodium 40 mg 01/19/24 09:00 01/20/24 08:23 Enoxaparin 40 Mg/0.4 Ml Syringe SUB-Q Not Given DAILY EZRA Glucagon 1 mg 01/18/24 18:39 Glucagon For Inj 1 Mg Vial IM PRN PRN Hypoglycemia Protocol Glucose 15 gm 01/18/24 18:39 Glucose Oral Gel 15 Gm Of Glucse In 37.5 Gm Tube PO PRN PRN Hypoglycemia Protocol Hydromorphone HCl 1 mg 01/20/24 10:41 01/21/24 09:11 Hydromorphone Hcl Inj (*Crx) 1 Mg/Ml Syr IV PUSH 1 mg Q2H PRN Administration Breakthrough Pain Rated 7-10 or NPO Hydromorphone HCl 0.5 mg 01/20/24 10:41 Hydromorphone Hcl Inj (*Crx) 1 Mg/Ml Syr IV PUSH Q2H PRN Breakthrough Pain Rated 4-6 or NPO Piperacillin/Tazobactam/Dextrose 3.375 gm in 50 mls @ 1
[2024-01-21] MEDS: ENOXAPARIN 40 MG/0.4 ML SYRINGE SUB-Q (09:46)
[2024-01-21 11:41] LABS: Glucose Point of Care 206 mg/dl (65-105)
--- NOTE | 2024-01-21 11:55 | WPDANESPN ---
Anes - Prog Note Post-Op Date/Time: 01/21/24 11:55 Cardiovascular status: normal Respiratory status: normal Airway patency: baseline Mental status: baseline Post-Op hydration status: normal Vital Signs: Last Vital Signs Temp 36.3 C L 01/21/24 04:26 Pulse 61 01/21/24 10:15 Resp 18 01/21/24 10:15 BP 93/62 L 01/21/24 10:15 Pulse Ox 99 01/21/24 10:15 O2 Del Method Room Air 01/21/24 09:15 O2 Flow Rate 8 01/20/24 09:25 Pain Score (VAS): 0 I/O: Intake & Output 01/20/24 01/21/24 01/21/24 23:59 07:59 15:59 Intake Total 2780 400 240 Balance 2780 400 240 Laboratory Tests 01/21/24 08:12 01/21/24 08:12 01/20/24 01/20/24 01/20/24 16:51 19:20 20:56 WBC RBC Hgb Hct MCV MCH MCHC RDW Plt Count MPV Immature Gran % (Auto) Neut % (Auto) Lymph % (Auto) [place] % (Auto) Eos % (Auto) Baso % (Auto) Lymph # (Auto) [place] # (Auto) Eos # (Auto) Baso # (Auto) Abs Immat Gran (auto) Absolute Neuts (auto) Absolute Nucleated RBC Nucleated RBC % Sodium Potassium Chloride Carbon Dioxide Anion Gap BUN Creatinine Estim Creat Clear Calc Estimated GFR Glucose POC Capillary Glucose 388 H 448 H 436 H Calcium Total Bilirubin AST ALT Alkaline Phosphatase Total Protein Albumin Vancomycin Trough 01/21/24 01/21/24 01/21/24 00:06 08:12 11:39 WBC 12.3 H RBC 4.11 L Hgb 12.4 Hct 36.3 L MCV 88.3 MCH 30.2 MCHC 34.2 RDW 13.9 Plt Count 327 MPV 11.0 H Immature Gran % (Auto) 0.7 H Neut % (Auto) 73.9 H Lymph % (Auto) 16.1 L [place] % (Auto) 8.5 Eos % (Auto) 0.5 Baso % (Auto) 0.3 Lymph # (Auto) 1.97 [place] # (Auto) 1.0 H Eos # (Auto) 0.1 Baso # (Auto) 0.0 Abs Immat Gran (auto) 0.08 H Absolute Neuts (auto) 9.1 H Absolute Nucleated RBC 0.000 Nucleated RBC % 0.0 Sodium 137 Potassium 3.6 Chloride 106 Carbon Dioxide 21 L Anion Gap 10 BUN 9 Creatinine 0.70 Estim Creat Clear Calc 97 Estimated GFR > 60 Glucose 256 H POC Capillary Glucose 292 H 264 H 206 H Calcium 9.9 Total Bilirubin 0.5 AST 25 ALT 20 Alkaline Phosphatase 80 Total Protein 7.0 Albumin 3.7 Vancomycin Trough 23.9 H Microbiology 01/18/24 16:31 Abscess Anaerobic Culture - Preliminary Prevotella bivia 01/18/24 16:31 Abscess Aerobic Culture - Preliminary Staphylococcus aureus Post-procedural complaints: none Patient Feedback: Patient satisfied with anesthetic care.
[2024-01-21 17:03] LABS: Glucose Point of Care 333 mg/dl (65-105)
[2024-01-21] MEDS: INSULIN GLARGINE (*BKC) 100 UNITS/ML 19 UNITS SUB-Q (20:45)
[2024-01-21] MEDS: HYDROmorphone HCL INJ (*CRX) 1 MG/ML SYR 0.5 MG IV PUSH (20:58)
[2024-01-21 21:08] LABS: Vancomycin Trough 11.5 ug/mL (10.0-20.0)
[2024-01-21 21:10] LABS: Estimated CRCL calculation 54 ml/min; Estimated Glomerular Filt Rate 56
[2024-01-21] MEDS: VANCOMYCIN 1,500 MG/NS 500 ML 1,500 MG/500 ML BAG 250 MG IVPB (23:32)
[2024-01-21 23:45] LABS: Glucose Point of Care 245 mg/dl (65-105)
[2024-01-22 02:00] VITALS: BP 122/73; PULSE 79; RESP 18; TEMP 36.7; O2SAT 100
[2024-01-22 05:05] LABS: Basophils Percent Auto 0.4 % (0.2-1.2); Eosinophils Absolute Auto 0.1 K/mm3 (0-0.3); Eosinophils Percent Auto 1.2 % (0-4.4); Hematocrit 36.2 % (37.0-47.0); Hemoglobin 12.1 g/dL (12.0-15.0); Immature Granulocyte Absolute 0.09 K/mm3 (0.00-0.031); Immature Granulocyte Percent A 0.8 % (0-0.5); Lymphocytes Absolute Auto 1.45 K/mm3 (0.9-3.2); Lymphocytes Percent Auto 13.1 % (18.3-44.2); Mean Corpuscular HGB Conc 33.4 g/dl (32-36); Mean Corpuscular Hemoglobin 29.7 pg (26-34); Mean Corpuscular Volume 88.7 fl (80-100); Neutrophils Absolute Auto 8.3 K/mm3 (1.3-6.7); Neutrophils Percent Auto 75.5 % (45.5-73.1); Platelet Count Result 346 k/mm3 (150-375); Red Blood Count 4.08 M/mm3 (4.2-5.4); Red Cell Distribution Width 13.6 % (11.5-14.5)
[2024-01-22] MEDS: HYDROcodone/acetaminophen (*CRX) 5-325 MG TABLET 1 TAB PO (05:18)
[2024-01-22] MEDS: PIPERACILLN/TAZ 3.375GM/NS50ML 3.375 GM/50 ML BAG IVPB ×4 (05:18→23:29)
[2024-01-22 05:19] LABS: Alanine Aminotransferase 25 U/L (6-35); Albumin Level 3.2 g/dL (3.5-5.1); Alkaline Phosphatase 72 U/L (38-126); Anion Gap 5 mmol/L (4-12); Aspartate Amino Transferase 35 U/L (14-36); Bilirubin,Total 0.3 mg/dL (0.2-1.3); Blood Urea Nitrogen 13 mg/dL (7-17); Calcium 9.5 mg/dL (8.4-10.2); Carbon Dioxide 23 mmol/L (22-30); Chloride 108 mmol/L (98-107); Estimated CRCL calculation 45 ml/min; Estimated Glomerular Filt Rate 44; Glucose 241 mg/dL (65-110); Potassium 3.7 mmol/L (3.4-5.0); Sodium 136 mmol/L (137-145)
[2024-01-22 06:00] VITALS: BP 110/65; PULSE 86; RESP 18; TEMP 36.5; O2SAT 100
--- NOTE | 2024-01-22 07:36 | PM.IMPN ---
Progress Note: A&P Assessment and Plan (1) New onset type 2 diabetes mellitus: Code(s): E11.9 - Type 2 diabetes mellitus without complications Status: Inactive Assessment and Plan: Random glucose was 338 on arrival - hemoglobin A1C 13.6%. - hypoglycemia protocol. - Due to patients continued glucose elevation, will increase patients lantus to 40 units (per weight base dosing), discontinue the meal time dosing, and increase her sliding scale to high dose. - Plan for patient to be discharged on insulin (2) Abscess of right buttock: Code(s): L02.31 - Cutaneous abscess of buttock Status: Acute Assessment and Plan: CT abdomen and pelvis fat stranding in the right perineum and right buttock, consistent with inflammation. No well-defined drainable abscess. - Continue empiric broad-spectrum antibiotics including Zosyn. Vancomycin discontinued due to patients LUKE. - S/p incision and drainage of complexx right perirectal abscess. Wound packed with 1 in iodoform gauze.? Fluff gauze, ABD pad, and mesh underwear was then applied.? - Wound care consulted. Packing removed yesterday. Wound is improving with continued induration and tenderness, but no drainage. - Wound culture 01/18/24: Staph aureus and Prevotella brevia - Blood culture NGTD - Surgery evaluated patient today and packing was removed. - We discussed the importance of keeping her glucose under tight control for good wound healing and to prevent further issues. (3) Cellulitis of right buttock: Code(s): L03.317 - Cellulitis of buttock Status: Acute Assessment and Plan: See problem #2 (4) Cellulitis of perineum: Code(s): L03.315 - Cellulitis of perineum Status: Acute Assessment and Plan: See problem #2 (5) Acute kidney injury: Code(s): N17.9 - Acute kidney failure, unspecified Status: Acute Assessment and Plan: Cr increased to 1.60 likely due to dual antibiotic therapy with Vancomycin and Zosyn. MRSA negative. Vancomycin discontinued. Patient remains on zosyn for staph and prevotella bivia coverage. Will continue to monitor kidney function. Time Spent With Patient Time with patient: 25 - 35 minutes Subjective Date/time seen: 01/22/24 07:36 Interval history: 33-year-old female with history of gestational diabetes in 2019 who presented to the emergency department the direction of her primary care provider for evaluation after she was found to have a blood sugar over 500.? Patient is pleasant lying in bed. She continues to have pain at incision and drainage site. She states that this is well controlled on pain regimen. Patient was found to have an LUKE on lab work. Vancomycin discontinued at that time. Zosyn will cover the staph and Prevotella bivia per pharmacy. Patient continues to have hyperglycemia into the 300 overnight. Will increase her lantus to 40 units as per weight base dosing, discontinue her meal times dosing, and start her on a high dose correction sliding scale. Review of Systems Review of Systems: All systems reviewed & are unremarkable except as noted in HPI and below Exam Narrative: AF HR 69 RR 18 SpO2 100 BP 111/69 General: female in no acute respiratory distress who is nontoxic appearing, lying on her left lateral in bed. HEENT: Normocephalic. Atraumatic. No facial asymmetry. Chest: Lungs are clear to auscultation bilaterally. No wheezes or crackles. CV: Heart was regular rate and rhythm. S1-S2. No murmurs, gallops, or rubs. Abd: Abdomen was soft. Nontender. Nondistended. Positive bowel sounds. No organomegaly or masses. Ext: No clubbing, cyanosis, or edema. 2+ DP pulses bilaterally. Neuro: Patient is alert and oriented x4. Speech is clear. Psych: Normal mood and affect. Patient is pleasant and cooperative. Skin: Warm and dry. Mild tenderness to her right buttock with well healing wound. Induration improving and no erythema or drainage noted. Objective
[2024-01-22 08:23] LABS: Glucose Point of Care 200 mg/dl (65-105)
[2024-01-22 08:47] VITALS: O2SAT 99
[2024-01-22] MEDS: ENOXAPARIN 40 MG/0.4 ML SYRINGE SUB-Q (09:09)
[2024-01-22] MEDS: INSULIN ASPART (*BKC) 100 UNITS/ML SUB-Q ×4 (09:09→17:30)
[2024-01-22] MEDS: NICOTINE (*PBKC) 14 MG PATCH 1 PATCH TRANSDERM (09:10)
[2024-01-22] MEDS: ACETAMINOPHEN 325 MG TABLET 650 MG PO ×2 (09:42→17:38)
--- NOTE | 2024-01-22 11:38 | PM.PNGS ---
Progress Note: A&P Assessment and Plan (1) Perirectal abscess: Code(s): K61.1 - Rectal abscess Status: Acute Assessment and Plan: Continuing to improve. Surgically stable for discharge. Continue local wound care. Follow up in 2 weeks in office. (2) Hyperglycemia: Code(s): R73.9 - Hyperglycemia, unspecified Status: Acute Subjective Subjective Date/Time Seen: 01/22/24 11:38 Interval history: Continuing to improve. No fevers. Swelling improving. Exam GI: Other: right perirectal abscess improving. Induration persists but no erythema or purulent drainage. Objective Data Vital Signs Vital Signs: Vital Signs - 24 hr 01/21/24 14:01 01/21/24 18:23 01/21/24 21:29 Temperature 36.5 C 36.8 C 36.4 C Pulse Rate 92 87 79 Respiratory Rate 18 18 18 Blood Pressure 96/54 L 110/71 100/56 L Pulse Oximetry 99 100 100 Oxygen Delivery 01/21/24 20:00 01/22/24 02:00 01/22/24 06:00 Temperature 36.7 C 36.5 C Pulse Rate 79 86 Respiratory Rate 18 18 Blood Pressure 122/73 110/65 Pulse Oximetry 100 100 Oxygen Delivery Room Air 01/22/24 08:47 Temperature Pulse Rate Respiratory Rate Blood Pressure Pulse Oximetry 99 Oxygen Delivery Room Air Intake/Output Intake/Output: Intake & Output 01/19/24 01/20/24 01/21/24 01/22/24 23:59 23:59 23:59 23:59 Intake Total 3150 3170 1550 1590 Balance 3150 3170 1550 1590 Meds/Results Medications: Active Medications Generic Name Dose Route Start Last Admin Trade Name Freq PRN Reason Stop Dose Admin Acetaminophen 650 mg 01/18/24 22:14 01/22/24 09:42 Acetaminophen 325 Mg Tablet PO 650 mg Q6H PRN Administration Mild Pain (1-3) or Fever Hydrocodone Bitart/Acetaminophen 1 tab 01/19/24 13:57 01/22/24 05:18 Hydrocodone/Acetaminophen (*Crx) 5-325 Mg Tablet PO 1 tab Q6H PRN Administration Pain Rated 4-6 Dextrose 12.5 gm 01/18/24 18:39 Dextrose 50% 25 Gm/50 Ml Syringe IV PUSH PRN PRN Hypoglycemia Protocol Diphenhydramine HCl 25 mg 01/20/24 10:41 Diphenhydramine Hcl Inj 50 Mg/Ml Vial IV PUSH Q6H PRN Itching Enoxaparin Sodium 40 mg 01/19/24 09:00 01/22/24 09:09 Enoxaparin 40 Mg/0.4 Ml Syringe SUB-Q 40 mg DAILY EZRA Administration Glucagon 1 mg 01/18/24 18:39 Glucagon For Inj 1 Mg Vial IM PRN PRN Hypoglycemia Protocol Glucose 15 gm 01/18/24 18:39 Glucose Oral Gel 15 Gm Of Glucse In 37.5 Gm Tube PO PRN PRN Hypoglycemia Protocol Hydromorphone HCl 1 mg 01/20/24 10:41 01/21/24 09:11 Hydromorphone Hcl Inj (*Crx) 1 Mg/Ml Syr IV PUSH 1 mg Q2H PRN Administration Breakthrough Pain Rated 7-10 or NPO Hydromorphone HCl 0.5 mg 01/20/24 10:41 01/21/24 20:58 Hydromorphone Hcl Inj (*Crx) 1 Mg/Ml Syr IV PUSH 0.5 mg Q2H PRN Administration Breakthrough Pain Rated 4-6 or NPO Piperacillin/Tazobactam/Dextrose 3.375 gm in 50 mls @ 100 mls/hr 01/19/24 00:00 01/22/24 05:48 Zosyn 3.375 Gm/Ns 50 Ml IVPB Infused Q6HR EZRA Infusion Dextrose 1,000 mls @ 100 mls/hr 01/18/24 18:39 Dextrose 5% 1,000 Ml IVPB PRN PRN Hypoglycemia Protocol Insulin Aspart 3 - 6 units 01/19/24 08:00 01/22/24 09:03 Insulin Aspart (*Bkc) 100 Units/Ml SUB-Q Not Given TIDWM [facility] Protocol Insulin Aspart 1 - 3 units 01/18/24 21:00 01/21/24 20:47 Insulin Aspart (*Bkc) 100 Units/Ml SUB-Q 1 units HS EZRA Administration Protocol Insulin Aspart 3 units 01/21/24 17:00 01/22/24 09:09 Insulin Aspart (*Bkc) 100 Units/Ml SUB-Q 3 units TIDWM EZRA Administration Insulin Glargine 19 units 01/21/24 21:00 01/21/24 20:45 Insulin Glargine (*Bkc) 100 Units/Ml SUB-Q 19 units HS EZRA Administration Naloxone HCl 0.1 mg 01/20/24 10:41 Naloxone Hcl 0.4 Mg/Ml Vial IV PUSH Q2M PRN Opiate Reversal Nicotine 1 patch 01/19/24 09:00 01/22/24 09:10 Nicoti
[2024-01-22 11:45] VITALS: BP 111/69; PULSE 69; RESP 18; TEMP 36.2; O2SAT 100
[2024-01-22 11:50] LABS: Glucose Point of Care 286 mg/dl (65-105)
[2024-01-22 16:05] VITALS: BP 132/75; PULSE 78; RESP 16; TEMP 36.2; O2SAT 100
[2024-01-22 17:05] LABS: Glucose Point of Care 183 mg/dl (65-105)
[2024-01-22] MEDS: ONDANSETRON INJ 4 MG/2 ML VIAL IV PUSH (17:36)
[2024-01-22 20:44] VITALS: BP 132/80; PULSE 65; RESP 16; TEMP 36.6; O2SAT 100
[2024-01-22 20:48] LABS: Glucose Point of Care 246 mg/dl (65-105)
[2024-01-22] MEDS: INSULIN GLARGINE (*BKC) 100 UNITS/ML 40 UNITS SUB-Q (20:48)
[2024-01-23] MEDS: PIPERACILLN/TAZ 3.375GM/NS50ML 3.375 GM/50 ML BAG IVPB ×4 (05:05→23:24)
[2024-01-23 05:27] LABS: Basophils Percent Auto 0.4 % (0.2-1.2); Eosinophils Absolute Auto 0.1 K/mm3 (0-0.3); Eosinophils Percent Auto 1.5 % (0-4.4); Hematocrit 33.5 % (37.0-47.0); Hemoglobin 11.1 g/dL (12.0-15.0); Immature Granulocyte Absolute 0.06 K/mm3 (0.00-0.031); Immature Granulocyte Percent A 0.6 % (0-0.5); Lymphocytes Absolute Auto 1.24 K/mm3 (0.9-3.2); Lymphocytes Percent Auto 13.1 % (18.3-44.2); Mean Corpuscular HGB Conc 33.1 g/dl (32-36); Mean Corpuscular Hemoglobin 29.8 pg (26-34); Mean Corpuscular Volume 89.8 fl (80-100); Mean Platelet Volume 10.8 fl (7.4-10.4); Monocytes Absolute Auto 0.9 K/mm3 (0.1-0.6); Monocytes Percent Auto 9.1 % (2.6-8.5); Neutrophils Absolute Auto 7.1 K/mm3 (1.3-6.7); Neutrophils Percent Auto 75.3 % (45.5-73.1); Platelet Count Result 341 k/mm3 (150-375); Red Blood Count 3.73 M/mm3 (4.2-5.4); Red Cell Distribution Width 14.1 % (11.5-14.5); White Blood Count 9.5 K/mm3 (4.5-10.0)
[2024-01-23 05:40] LABS: Alanine Aminotransferase 21 U/L (6-35); Alkaline Phosphatase 60 U/L (38-126); Anion Gap 4 mmol/L (4-12); Aspartate Amino Transferase 25 U/L (14-36); Bilirubin,Total 0.3 mg/dL (0.2-1.3); Blood Urea Nitrogen 12 mg/dL (7-17); Calcium 9.5 mg/dL (8.4-10.2); Carbon Dioxide 26 mmol/L (22-30); Chloride 109 mmol/L (98-107); Estimated CRCL calculation 41 ml/min; Estimated Glomerular Filt Rate 39; Glucose 181 mg/dL (65-110); Potassium 3.5 mmol/L (3.4-5.0); Sodium 139 mmol/L (137-145)
[2024-01-23 06:54] VITALS: BP 128/87; PULSE 63; RESP 16; TEMP 36.4; O2SAT 100
--- NOTE | 2024-01-23 07:09 | PM.IMPN ---
Progress Note: A&P Assessment and Plan (1) New onset type 2 diabetes mellitus: Code(s): E11.9 - Type 2 diabetes mellitus without complications Status: Inactive Assessment and Plan: Random glucose was 338 on arrival. - hemoglobin A1C 13.6%. - hypoglycemia protocol. - Due to patients continued glucose elevation, will increase patients lantus to 44 units (per weight base dosing of 0.6units/kg), discontinue the meal time dosing, and keep sliding scale - Plan for patient to be discharged on insulin (2) Abscess of right buttock: Code(s): L02.31 - Cutaneous abscess of buttock Status: Acute Assessment and Plan: CT abdomen and pelvis fat stranding in the right perineum and right buttock, consistent with inflammation. No well-defined drainable abscess. - Continue empiric broad-spectrum antibiotics including Zosyn. Vancomycin discontinued due to patients LUKE. - S/p incision and drainage of complexx right perirectal abscess. Wound packed with 1 in iodoform gauze.? Fluff gauze, ABD pad, and mesh underwear was then applied.? - Wound care consulted. Packing removed yesterday. Wound is improving with continued induration and tenderness, but no drainage. - Wound culture 01/18/24: Staph aureus and Prevotella brevia - Blood culture NGTD - Surgery evaluated patient today and packing was removed. - We discussed the importance of keeping her glucose under tight control for good wound healing and to prevent further issues. (3) Cellulitis of right buttock: Code(s): L03.317 - Cellulitis of buttock Status: Acute Assessment and Plan: See problem #2 (4) Cellulitis of perineum: Code(s): L03.315 - Cellulitis of perineum Status: Acute Assessment and Plan: See problem #2 (5) Acute kidney injury: Code(s): N17.9 - Acute kidney failure, unspecified Status: Acute Assessment and Plan: Cr increased to 1.60 om 5/3 likely due to dual antibiotic therapy with Vancomycin and Zosyn. MRSA negative. Vancomycin discontinued. Patient remains on zosyn for staph and Prevotella bivia coverage. Today Cr 1.8. - Will continue to monitor kidney function - Monitor I/O - Zosyn being renally dosed per pharmacy - 1L NS IV bolus x1 given - recheck Cr this pm Time Spent With Patient Time with patient: 25 - 35 minutes Subjective Date/time seen: 01/23/24 07:09 Interval history: 33-year-old female with history of gestational diabetes in 2019 who presented to the emergency department the direction of her primary care provider for evaluation after she was found to have a blood sugar over 500.? Patient is lying comfortably in bed. She states she is feeling much better this morning. She continues to have mild pain/tenderness to the right buttock around the incision site. Patient states that Tylenol for pain management has been covering this pain. Worsening LUKE noted on CMP. Zosyn being renally dosed per pharmacy. Patient given a 1L NS bolus and will reassess Cr level in the pm. Blood glucose has improved with the weight based basal insulin dosing, however they remain elevated. Will increase basal dosing to 44 units lantus. Continue to monitor POC glucose and correction sliding scale in place. Review of Systems Review of Systems: All systems reviewed & are unremarkable except as noted in HPI and below Exam Narrative: AF HR 63 RR 16 SpO2 100 BP 128/87 General: female in no acute respiratory distress who is nontoxic appearing, lying on her left lateral in bed. HEENT: Normocephalic. Atraumatic. No facial asymmetry. Chest: Lungs are clear to auscultation bilaterally. No wheezes or crackles. CV: Heart was regular rate and rhythm. S1-S2. No murmurs, gallops, or rubs. Abd: Abdomen was soft. Nontender. Nondistended. Positive bowel sounds. No organomegaly or masses. Ext: No clubbing, cyanosis, or edema. 2+ DP pulses bilaterally. Neuro: Patient is alert and oriented x4. Speech is clear.
[2024-01-23 08:13] LABS: Glucose Point of Care 168 mg/dl (65-105)
[2024-01-23] MEDS: NICOTINE (*PBKC) 14 MG PATCH 1 PATCH TRANSDERM (09:48)
[2024-01-23 12:05] LABS: Glucose Point of Care 221 mg/dl (65-105)
[2024-01-23] MEDS: INSULIN ASPART (*BKC) 100 UNITS/ML SUB-Q (12:09)
[2024-01-23] MEDS: SODIUM CHLORIDE 0.9% IV 1,000 ML 800 ML IV CONT (12:12)
[2024-01-23 14:00] VITALS: BP 108/86; PULSE 58; RESP 18; TEMP 37; O2SAT 100
[2024-01-23 15:09] LABS: Estimated CRCL calculation 41 ml/min; Estimated Glomerular Filt Rate 41
[2024-01-23] MEDS: SODIUM CHLORIDE 0.9% IV 1,000 ML 100 ML IV CONT (17:06)
[2024-01-23] MEDS: ONDANSETRON INJ 4 MG/2 ML VIAL IV PUSH (17:08)
[2024-01-23 17:09] LABS: Glucose Point of Care 180 mg/dl (65-105)
[2024-01-23] MEDS: INSULIN GLARGINE (*BKC) 100 UNITS/ML 44 UNITS SUB-Q (21:11)
[2024-01-23 21:19] VITALS: BP 130/90; PULSE 60; RESP 20; TEMP 36.3; O2SAT 100
[2024-01-23] MEDS: ACETAMINOPHEN 325 MG TABLET 650 MG PO (21:21)
[2024-01-23 21:31] LABS: Glucose Point of Care 274 mg/dl (65-105)
[2024-01-24 04:24] LABS: Basophils Percent Auto 0.3 % (0.2-1.2); Eosinophils Absolute Auto 0.1 K/mm3 (0-0.3); Eosinophils Percent Auto 1.4 % (0-4.4); Hematocrit 32.4 % (37.0-47.0); Hemoglobin 10.6 g/dL (12.0-15.0); Immature Granulocyte Absolute 0.05 K/mm3 (0.00-0.031); Immature Granulocyte Percent A 0.5 % (0-0.5); Lymphocytes Absolute Auto 1.38 K/mm3 (0.9-3.2); Lymphocytes Percent Auto 13.7 % (18.3-44.2); Mean Corpuscular HGB Conc 32.7 g/dl (32-36); Mean Corpuscular Hemoglobin 29.8 pg (26-34); Mean Platelet Volume 10.1 fl (7.4-10.4); Monocytes Absolute Auto 0.9 K/mm3 (0.1-0.6); Monocytes Percent Auto 8.5 % (2.6-8.5); Neutrophils Absolute Auto 7.6 K/mm3 (1.3-6.7); Neutrophils Percent Auto 75.6 % (45.5-73.1); Platelet Count Result 305 k/mm3 (150-375); Red Blood Count 3.56 M/mm3 (4.2-5.4); White Blood Count 10.1 K/mm3 (4.5-10.0)
[2024-01-24 04:39] LABS: Alanine Aminotransferase 28 U/L (6-35); Alkaline Phosphatase 63 U/L (38-126); Anion Gap 6 mmol/L (4-12); Aspartate Amino Transferase 34 U/L (14-36); Bilirubin,Total 0.3 mg/dL (0.2-1.3); Blood Urea Nitrogen 11 mg/dL (7-17); Calcium 9.4 mg/dL (8.4-10.2); Carbon Dioxide 22 mmol/L (22-30); Chloride 113 mmol/L (98-107); Estimated CRCL calculation 39 ml/min; Estimated Glomerular Filt Rate 39; Glucose 177 mg/dL (65-110); Potassium 3.7 mmol/L (3.4-5.0); Sodium 141 mmol/L (137-145)
[2024-01-24 06:00] VITALS: BP 125/74; PULSE 57; RESP 16; TEMP 36.4; O2SAT 100
[2024-01-24] MEDS: PIPERACILLN/TAZ 3.375GM/NS50ML 3.375 GM/50 ML BAG IVPB (06:10)
[2024-01-24] MEDS: SODIUM CHLORIDE 0.9% IV 1,000 ML 100 ML IV CONT ×3 (06:12→23:54)
[2024-01-24 07:55] LABS: Glucose Point of Care 140 mg/dl (65-105)
--- NOTE | 2024-01-24 08:52 | PM.IMPN ---
Progress Note: A&P Assessment and Plan (1) New onset type 2 diabetes mellitus: Code(s): E11.9 - Type 2 diabetes mellitus without complications Status: Inactive Assessment and Plan: Random glucose was 338 on arrival. - hemoglobin A1C 13.6%. - hypoglycemia protocol. - Due to patients continued glucose elevation, will increase patients lantus to 44 units (per weight base dosing of 0.6units/kg), discontinue the meal time dosing, and keep sliding scale - Plan for patient to be discharged on insulin 01/23: Lipid panel pending May need statin at discharge low dose for renal protection (2) Abscess of right buttock: Code(s): L02.31 - Cutaneous abscess of buttock Status: Acute Assessment and Plan: CT abdomen and pelvis fat stranding in the right perineum and right buttock, consistent with inflammation. No well-defined drainable abscess. - Continue empiric broad-spectrum antibiotics including Zosyn. Vancomycin discontinued due to patients LUKE. - S/p incision and drainage of complexx right perirectal abscess. Wound packed with 1 in iodoform gauze.? Fluff gauze, ABD pad, and mesh underwear was then applied.? - Wound care consulted. Packing removed yesterday. Wound is improving with continued induration and tenderness, but no drainage. - Wound culture 01/18/24: Staph aureus and Prevotella brevia - Blood culture NGTD - Surgery evaluated patient today and packing was removed. - We discussed the importance of keeping her glucose under tight control for good wound healing and to prevent further issues. 01/23: Switched patient to IV clindamycin no need for renal adjustment and should cover both staph and prevotella isolate Can switch to p.o. clindamycin discharge Need to follow up with surgery in 2 weeks post discharge (3) Cellulitis of right buttock: Code(s): L03.317 - Cellulitis of buttock Status: Acute Assessment and Plan: See problem #2 (4) Cellulitis of perineum: Code(s): L03.315 - Cellulitis of perineum Status: Acute Assessment and Plan: See problem #2 (5) Acute kidney injury: Code(s): N17.9 - Acute kidney failure, unspecified Status: Acute Assessment and Plan: Cr increased to 1.60 om 01/21 likely due to dual antibiotic therapy with Vancomycin and Zosyn. MRSA negative. Vancomycin discontinued. Patient remains on zosyn for staph and Prevotella bivia coverage. Today Cr 1.8. - Will continue to monitor kidney function - Monitor I/O - Zosyn being renally dosed per pharmacy - 1L NS IV bolus x1 given - recheck Cr this pm 01/23: Creatinine continued to elevate to 1.8 today likely medication induced Zosyn switched to clindamycin Follow-up renal function in a.m. Will need outpatient renal function with new diabetes diagnosis Plan Code status: Full code per patient DVT prophylaxis: Lovenox Stress ulcer prophylaxis: Protonix 40 daily PT/OT notes: Ambulatory Disposition: Patient admitted for abscess will continue with IV antibiotics newly diagnosed diabetes and LUKE. Patient can likely discharge on p.o. clindamycin tomorrow follow-up renal function in the a.m. patient ambulatory and will not require any discharge needs however will need glucometer and insulin teaching Time Spent With Patient Time with patient: 15 - 25 minutes Subjective Date/time seen: 01/24/24 08:52 Interval history: 33-year-old female with history of gestational diabetes in 2019 who presented to the emergency department the direction of her primary care provider for evaluation after she was found to have a blood sugar over 500.? Patient is lying comfortably in bed. She states she is feeling much better this morning. She continues to have mild pain/tenderness to the right buttock around the incision site. Patient states that Tylenol for pain management has been covering this pain. Worsening LUKE noted on CMP. Zosyn being renally dosed per pharmacy. Gabriela
[2024-01-24 09:20] LABS: Cholesterol 137 mg/dL (0-200); HDL Direct 24 mg/dL; Triglycerides 119 mg/dL (<150)
[2024-01-24 09:32] LABS: LDL Cholesterol Direct 85 mg/dL
[2024-01-24] MEDS: CLINDAMYCIN 300 MG in DEXTROSE 5% IN WATER 50 ML 104 MG IVPB ×3 (11:50→23:54)
[2024-01-24] MEDS: NICOTINE (*PBKC) 14 MG PATCH 1 PATCH TRANSDERM (12:00)
[2024-01-24 12:09] LABS: Glucose Point of Care 145 mg/dl (65-105)
[2024-01-24 14:00] VITALS: BP 106/54; PULSE 69; RESP 18; TEMP 37.2; O2SAT 100
[2024-01-24 16:17] LABS: Glucose Point of Care 225 mg/dl (65-105)
[2024-01-24] MEDS: ACETAMINOPHEN 325 MG TABLET 650 MG PO (17:02)
[2024-01-24] MEDS: INSULIN ASPART (*BKC) 100 UNITS/ML SUB-Q (17:03)
[2024-01-24 20:42] VITALS: BP 118/70; PULSE 55; RESP 20; TEMP 36.7; O2SAT 100
[2024-01-24] MEDS: INSULIN GLARGINE (*BKC) 100 UNITS/ML 44 UNITS SUB-Q (20:50)
[2024-01-24 20:54] LABS: Glucose Point of Care 189 mg/dl (65-105)
[2024-01-25 04:50] LABS: Basophils Percent Auto 0.3 % (0.2-1.2); Eosinophils Absolute Auto 0.2 K/mm3 (0-0.3); Eosinophils Percent Auto 1.9 % (0-4.4); Hematocrit 33.5 % (37.0-47.0); Immature Granulocyte Absolute 0.05 K/mm3 (0.00-0.031); Immature Granulocyte Percent A 0.5 % (0-0.5); Lymphocytes Absolute Auto 1.56 K/mm3 (0.9-3.2); Lymphocytes Percent Auto 14.5 % (18.3-44.2); Mean Corpuscular HGB Conc 32.8 g/dl (32-36); Mean Corpuscular Hemoglobin 30.2 pg (26-34); Mean Platelet Volume 10.4 fl (7.4-10.4); Monocytes Absolute Auto 0.9 K/mm3 (0.1-0.6); Monocytes Percent Auto 8.6 % (2.6-8.5); Neutrophils Percent Auto 74.2 % (45.5-73.1); Platelet Count Result 321 k/mm3 (150-375); Red Blood Count 3.64 M/mm3 (4.2-5.4); Red Cell Distribution Width 14.4 % (11.5-14.5); White Blood Count 10.8 K/mm3 (4.5-10.0)
[2024-01-25 05:11] LABS: Alanine Aminotransferase 40 U/L (6-35); Albumin Level 3.2 g/dL (3.5-5.1); Alkaline Phosphatase 61 U/L (38-126); Anion Gap 4 mmol/L (4-12); Aspartate Amino Transferase 40 U/L (14-36); Bilirubin,Total 0.3 mg/dL (0.2-1.3); Blood Urea Nitrogen 8 mg/dL (7-17); Calcium 9.4 mg/dL (8.4-10.2); Carbon Dioxide 21 mmol/L (22-30); Chloride 114 mmol/L (98-107); Estimated CRCL calculation 47 ml/min; Estimated Glomerular Filt Rate 48; Glucose 90 mg/dL (65-110); Potassium 3.4 mmol/L (3.4-5.0); Sodium 139 mmol/L (137-145)
[2024-01-25] MEDS: CLINDAMYCIN 300 MG in DEXTROSE 5% IN WATER 50 ML 104 MG IVPB ×2 (06:02→12:37)
[2024-01-25 06:19] VITALS: BP 109/72; PULSE 66; RESP 16; TEMP 36.2; O2SAT 97
[2024-01-25 08:02] LABS: Glucose Point of Care 73 mg/dl (65-105)
[2024-01-25 08:34] VITALS: O2SAT 96
[2024-01-25] MEDS: NICOTINE (*PBKC) 14 MG PATCH 1 PATCH TRANSDERM (10:00)
[2024-01-25 12:24] LABS: Glucose Point of Care 148 mg/dl (65-105)
--- NOTE | 2024-01-25 13:02 | PCNFU ---
Nutrition Follow-Up Complete: Unintended weight loss as related to new dx of DM as evidenced by HbA1c 13.6% Adequate Intake of at least 75% of meals/supplements - Progressing to goal. Pt does not like the food. Continue with same goal Goal: Pt current nutrition is Diabetic consistent carbs. Glucerna BID for additional 220 kcal and 10 g protein each Nutrition recommendation: No new nutrition recommendations. Continue with same nutrition care plan and orders Last recorded weight is 79.8 kg. Bowel Motility: +1 B M 01/25/24 Labs Reviewed: Hgb 11.0, Hct 33.5, Cre 1.5, Glu 148 Meds Noted: Lantus, Skin: Surgical Additional Notes: Pt says she is feeling much better and ready to go home. voices understanding of diabetic recommendations and able to teach back. RD will monitor weight, labs, skin, oral intake, meds every 5 days.
--- NOTE | 2024-01-25 15:07 | PM.DS ---
DS: Admitting Diagnosis Discharge Date 01/25/24 Admitting Diagnosis New onset type 2 diabetes mellitus without complications Abscess of right buttock Cellulitis of buttock Cellulitis perineum Acute kidney injury DS: Discharge Diagnosis Discharge Diagnosis (1) New onset type 2 diabetes mellitus: Code(s): E11.9 - Type 2 diabetes mellitus without complications Status: Inactive (2) Abscess of right buttock: Code(s): L02.31 - Cutaneous abscess of buttock Status: Acute (3) Cellulitis of right buttock: Code(s): L03.317 - Cellulitis of buttock Status: Acute (4) Cellulitis of perineum: Code(s): L03.315 - Cellulitis of perineum Status: Acute (5) Acute kidney injury: Code(s): N17.9 - Acute kidney failure, unspecified Status: Acute DS: Summary Hospital Course Reason for hospitalization: New onset type 2 diabetes mellitus without complications Abscess of right buttock Cellulitis of buttock Cellulitis perineum Acute kidney injury Hospital Course: 33-year-old female with history of gestational diabetes in 2019 who presented to the emergency department the direction of her primary care provider for evaluation after she was found to have a blood sugar over 500.?A hemoglobin a1c was 13.6. Patient started on insulin and performance test engineer consulted. Attempted basal insulin and short acting insulin with meals, but patient remained hyperglycemia. Started patient on 44 units of lantus and glucose levels improved. Discussed in depth with the patient the importance of eating three times a day due to long acting insulin. She states understanding. Information in regarding the new diabetes diagnosis and insulin information was given to the patient at time of discharge. Patient had a right buttock abscess on admission. A CT abdomen/pelvis was obtained and showed ?fat stranding in the right perineum and right buttock, consistent with inflammation. No well-defined drainable abscess. Surgery was consulted and performed an incision and drainage of complex right perirectal abscess. Wound cultures were positive for Staph aureus and Prevotella brevia. Patient originally on vancomycin and zosyn but developed an LUKE. She received fluids and was transitioned to IV clindamycin. LUKE improving and patient discharged on PO clindamycin. She will obtain a CMP to reassess BUN/Cr outpatient. She is to follow up with her PCP in 1 week and surgery in 2 weeks. Patient discharged home in a stable condition with family. She is to follow up with her PCP in 1 week and surgery in 2 weeks. She will obtain a CMP outpatient to reassess BUN/creatinine. Status at Discharge Functional status at discharge: independent ambulation Time Spent with Patient Time attestation: Total time spent providing and/or coordinating discharge services: Time spent: Greater than 30 minutes Exam Narrative: AF HR 66 RR 16 SpO2 97 BP 109/72 General: female in no acute respiratory distress who is nontoxic appearing, lying on her left lateral in bed. HEENT: Normocephalic. Atraumatic. No facial asymmetry. Chest: Lungs are clear to auscultation bilaterally. No wheezes or crackles. CV: Heart was regular rate and rhythm. S1-S2. No murmurs, gallops, or rubs. Abd: Abdomen was soft. Nontender. Nondistended. Positive bowel sounds. No organomegaly or masses. Ext: No clubbing, cyanosis, or edema. 2+ DP pulses bilaterally. Neuro: Patient is alert and oriented x4. Speech is clear. Psych: Normal mood and affect. Patient is pleasant and cooperative. Skin: Warm and dry. Mild tenderness to her right buttock with well healing wound. Induration improving and no erythema or drainage noted. DS: Data Data Completed and Pending Completed studies during hospitalization: Abdomen/pelvis CT Labs on day of discharge: Labs from last 24 hours 01/25/24 01/25/24 01/25/24 12:21 08:00 04:42 WBC 10.8 H RBC 3.64 L Hgb 11.0 L Hct 33.5 L MCV 92.0 MCH
== END 2024-01-25 16:30 | disposition home or self-care (01) | DRG 345 ==
LOC: ANHED 15:44 → ANH2MED 16:06
PROVIDERS: Internal Medicine Critical Care Medicine; Nurse Practitioner Family; Physician Assistant; Student in an Organized Health Care Education/Training Program; Surgery; Admitting Provider Internal Medicine; Emergency Provider Emergency Medicine; PCP Emergency Medicine; Visit Provider Family Medicine
PROC: 0D9P0ZX Drainage of Rectum, Open Approach, Diagnostic (ICD-10-PCS; CPT 46040; principal; 2024-01-20 08:30)
DX: K61.1 Rectal abscess (principal); L02.31 Cutaneous abscess of buttock; L03.315 Cellulitis of perineum; N17.9 Acute kidney failure, unspecified; L03.317 Cellulitis of buttock; B95.61 Methicillin susceptible Staphylococcus aureus infection as the cause of diseases classified elsewhere; B96.89 Other specified bacterial agents as the cause of diseases classified elsewhere; E11.65 Type 2 diabetes mellitus with hyperglycemia; F17.210 Nicotine dependence, cigarettes, uncomplicated; E66.9 Obesity, unspecified; Z68.30 Body mass index [BMI] 30.0-30.9, adult
CPT/HCPCS: 36415; 36600; 74177; 80048; 80053; 80061; 80202; 81003; 81025; 82010; 82375; 82565; 82805; 82948; 83036; 83050; 83605; 83735; 84100; 85025; 85027; 87040; 87070; 87075; 87076; 87147; 87181; 87185; 87205; 96361; 96365; 96366; 99285; A9270; G0378; J1100; J1170; J1650; J1815; J2250; J2405; J2543; J2704; J3010; J3370; J7030; J7120; Q9967

== ENCOUNTER 2024-03-21 14:59 | Emergency (ER) | payer OTHER, SELFPAY ==
[2024-03-21 15:03] VITALS: BP 130/87; PULSE 92; RESP 16; TEMP 36.5; O2SAT 100
--- NOTE | 2024-03-21 18:01 | ED.GENADULT ---
HPI - General Adult General Chief complaint: Unspecified Stated complaint: hand numbness Time Seen by Provider: 03/21/24 17:28 History of Present Illness HPI narrative: This is a 33-year-old female who was recently diagnosed with type 2 diabetes presenting with 2 months of pain/numbness and tingling in her hands and feet. Patient describes burning and pins and needle sensation. It is causing her to drop objects at work. A1c was 13.1 when she was diagnosed with diabetes 2 months ago. no other symptoms. Patient has primary care visit tomorrow for Related Data Allergies Allergy/AdvReac Type Severity Reaction Status Date / Time No Known Allergies Allergy Verified 02/12/24 10:26 [facility] Past Medical History Medical History Gestational diabetes New onset type 2 diabetes mellitus Overweight Surgical History Surgical History No history of previous surgery Family History Family History Father Hypertension Grandparent Diabetes mellitus Social History Social History Social History: Surrogate medical decision maker: Dorys Ibarra, mother. Code status: Full code. Smoking packs per day: 0.25 Smoking cigarettes per day: 5.0 Years smoked: 14 Smoking pack-years: 3.50 Smoking status: Current every day smoker Tobacco type: cigarettes Second hand tobacco smoke exposure: Yes Alcohol intake: never Substance use: current Substance use type: marijuana Do You Feel Safe in your Home?: Yes Lack of Transportation: No Lack of Food: Never True Current Housing: I Have Housing Concerned About Future Housing: No Difficulty Paying Gas/Electric Bills: No Difficulty Paying for Meds: No Currently Unemployed: No Education: High School Diploma/GED Difficulty w/ Childcare or Family Care: No Additional living arrangements comments: Lives with mother in 5-year-old son. 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 Spiritual care concerns: No Exam Narrative: APPEARANCE: No apparent distress. Head: atraumatic. EYES: EOMI, NOSE: Atraumatic NECK: Trachea midline RESPIRATORY: No increased rate of breathing clear auscultation CARDIOVASCULAR: RRR, ABDOMINAL: Non-distended MUSCULOSKELETAl: No obvious deformities NEURO: Alert. Cranial nerves 2-12 grossly intact. Sensation light touch, motor function cerebellar function intact for 4 extremities. Gait exam was normal. SKIN:: Warm, dry. Normal color PSYCHIATRIC: Normal affect Course Vital Signs Vital signs: Vital Signs Temperature 97.7 F 03/21/24 15:03 Pulse Rate 92 03/21/24 15:03 Respiratory Rate 16 03/21/24 15:03 Blood Pressure 130/87 03/21/24 15:03 Pulse Oximetry 100 03/21/24 15:03 Oxygen Delivery Room Air 03/21/24 15:03 Temperature 97.7 F 03/21/24 15:03 Pulse Rate 92 03/21/24 15:03 Respiratory Rate 16 03/21/24 15:03 Blood Pressure 130/87 03/21/24 15:03 Pulse Oximetry 100 03/21/24 15:03 Oxygen Delivery Room Air 03/21/24 15:03 Medical Decision Making MDM Narrative Medical decision making narrative: -Course: 33-year-old female was recently diagnosed with diabetes presenting with pins and needles in her hands and feet. Consistent with diabetic neuropathy. Patient given dose of gabapentin for pain control. Patient has follow-up with her primary care physician tomorrow morning. 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 B12 folate TSH are pending which can be followed by primary care physician. -Interventions: gabapentin 600 mg -S
[2024-03-21] MEDS: GABAPENTIN 300 MG CAPSULE 600 MG PO (18:23)
[2024-03-21 18:26] LABS: Basophils Percent Auto 0.3 % (0.2-1.2); Eosinophils Absolute Auto 0.1 K/mm3 (0-0.3); Eosinophils Percent Auto 1.7 % (0-4.4); Hematocrit 38.2 % (37.0-47.0); Immature Granulocyte Absolute 0.02 K/mm3 (0.00-0.031); Immature Granulocyte Percent A 0.3 % (0-0.5); Lymphocytes Absolute Auto 1.53 K/mm3 (0.9-3.2); Lymphocytes Percent Auto 23.3 % (18.3-44.2); Mean Corpuscular Hemoglobin 31.1 pg (26-34); Mean Corpuscular Volume 91.4 fl (80-100); Mean Platelet Volume 10.8 fl (7.4-10.4); Monocytes Absolute Auto 0.4 K/mm3 (0.1-0.6); Monocytes Percent Auto 6.4 % (2.6-8.5); Neutrophils Absolute Auto 4.5 K/mm3 (1.3-6.7); Platelet Count Result 233 k/mm3 (150-375); Red Blood Count 4.18 M/mm3 (4.2-5.4); White Blood Count 6.6 K/mm3 (4.5-10.0)
[2024-03-21 18:39] LABS: Alanine Aminotransferase 14 U/L (6-35); Albumin Level 4.1 g/dL (3.5-5.1); Alkaline Phosphatase 46 U/L (38-126); Anion Gap 5 mmol/L (4-12); Aspartate Amino Transferase 24 U/L (14-36); Bilirubin,Total 0.4 mg/dL (0.2-1.3); Blood Urea Nitrogen 19 mg/dL (7-17); Calcium 9.7 mg/dL (8.4-10.2); Carbon Dioxide 26 mmol/L (22-30); Chloride 109 mmol/L (98-107); Estimated CRCL calculation 58 ml/min; Estimated Glomerular Filt Rate 56; Glucose 92 mg/dL (65-110); Potassium 4.5 mmol/L (3.4-5.0); Sodium 140 mmol/L (137-145)
[2024-03-21 18:57] LABS: Glucose Point of Care 124 mg/dl (65-105)
[2024-03-21 19:17] VITALS: BP 142/71; PULSE 83; RESP 16; TEMP 36.7; O2SAT 97
[2024-03-21 19:17] LABS: Thyroid Stimulating Hormone Reflex 0.722 uIU/mL (0.465-4.68)
== END 2024-03-21 19:17 | disposition home or self-care (01) ==
PROVIDERS: Emergency Provider Emergency Medicine; PCP Emergency Medicine
DX: G62.9 Polyneuropathy, unspecified (principal); E11.9 Type 2 diabetes mellitus without complications; F17.210 Nicotine dependence, cigarettes, uncomplicated
CPT/HCPCS: 36415; 80053; 82607; 82746; 82948; 84443; 85025; 99283; A9270